=== PATIENT | female | born 1975 | race Caucasian/White ===

== ENCOUNTER 2020-07-28 19:38 | Emergency (ER) | payer OTHER ==
[2020-07-28 19:45] VITALS: BP 135/59
[2020-07-28] MEDS ORDERED: KETOROLAC TROMETHAMINE 60 MG/2 ML SDV IM ONE (20:25)
--- NOTE | 2020-07-28 20:26 | ER Document Report ---
HPI - HPI Time Seen by Provider: 07/28/20 20:20 Pain Level: 4 Notes: Otherwise healthy 45-year-old female presenting. Patient denies any nausea, vomiting, phonophobia or photophobia she has not had fever or chills. She states this feels like a typical migraine. She denies any neck pain. - ROS Systems Reviewed and Negative: Yes All other systems reviewed and negative - NEURO Neurology: REPORTS: Headache - REPRODUCTIVE LMP: hyst Reproductive: DENIES: : Past Medical History - General Information source: Patient - Social History Smoking Status: Never Smoker Chew tobacco use (# tins/day): No Frequency of alcohol use: Rare Drug Abuse: None Family History: Reviewed & Not Pertinent Neurological Medical History: Reports: Hx Migraine Vertical Provider Document - CONSTITUTIONAL Notes: PHYSICAL EXAMINATION: GENERAL: Well-appearing, well-nourished and in no acute distress. HEAD: Atraumatic, normocephalic. EYES: Pupils equal round extraocular movements intact, conjunctiva are normal. ENT: Nares patent NECK: Normal range of motion, no nuchal rigidity. LUNGS: No respiratory distress Musculoskeletal: Normal range of motion NEUROLOGICAL: Normal speech, normal gait. No focal neurological deficits noted. PSYCH: Normal mood, normal affect. SKIN: Warm, Dry, normal turgor, no rashes or lesions noted. Course - Re-evaluation Re-evalutation: Patient declined full migraine cocktail. She states usually an IM injection of Toradol takes care of her headaches. We will give her a shot of Toradol and discharge her home. - Vital Signs Vital signs: Temp Pulse Resp BP Pulse Ox 97.8 F 63 18 135/59 H 96 07/28/20 19:45 07/28/20 19:45 07/28/20 19:45 07/28/20 19:45 07/28/20 19:45 Discharge - Discharge Clinical Impression: Migraine Qualifiers: Migraine type: unspecified Status migrainosus presence: without status migrainosus Intractability: not intractable Qualified Code(s): G43.909 - Migraine, unspecified, not intractable, without status migrainosus Condition: Stable Disposition: HOME, SELF-CARE Additional Instructions: You were seen today for a migraine headache. Please follow-up with your primary care doctor regarding today's ED visit. Return to emergency department immediately if you develop a headache that gets to its maximum severity within 20 minutes of onset, you pass out, you develop weakness, numbness, changes in your vision, become unable to keep any fluids down for more than 12 hours, or develop a fever greater than 100.4 degrees Fahrenheit. If you develop a similar migraine headache in the future I recommend that you immediately take 600 mg of ibuprofen and 50 mg of Benadryl and go to sleep as quickly as possible. This can often prevent your migraine headache from becoming severe. Referrals: VICENTE GUPTA MD [[facility]AFF] - Follow up as needed
== END 2020-07-28 20:36 | disposition home or self-care (01) ==
LOC: ER 19:38
DX: G43.909 Migraine, unspecified, not intractable, without status migrainosus (principal)
CPT/HCPCS: 99284; 96372; J1885